=== PATIENT | male | born 1990 | race Asian ===

== ENCOUNTER 2025-01-05 16:35 | Emergency (ER) | payer OTHER ==
[2025-01-05 16:49] VITALS: BP 118/71; PULSE 96; RESP 20; TEMP 98.9; BMI 32.5
[2025-01-05] MEDS ORDERED: IBUPROFEN 400 MG TABLET (FP) PO ONE (17:33)
[2025-01-05] MEDS ORDERED: LIDOCAINE 4% PATCH TP ONE (17:33)
[2025-01-05] MEDS ORDERED: ACETAMINOPHEN 325 MG TABLET (FP) ONE (17:33)
[2025-01-05] MEDS: IBUPROFEN 400 MG TABLET (FP) PO ONE (17:45)
[2025-01-05] MEDS: ACETAMINOPHEN 325 MG TABLET (FP) PO ONE (17:45)
[2025-01-05] MEDS: LIDOCAINE 4% PATCH TP ONE (17:45)
[2025-01-05] MEDS ORDERED: LIDOCAINE PATCH REMOVAL MC SCH (22:00)
== END 2025-01-05 21:12 | disposition home or self-care (01) ==
LOC: JER 16:35
DX: M25.512 Pain in left shoulder (principal); R07.89 Other chest pain; V49.40XA Driver injured in collision with unspecified motor vehicles in traffic accident, initial encounter; Y92.410 Unspecified street and highway as the place of occurrence of the external cause
CPT/HCPCS: 73030-TC-LT-FY; 99283-25